=== PATIENT | female | born 1970 | race Caucasian/White ===

== ENCOUNTER 2022-05-09 12:52 | Emergency (ER) | payer SELFPAY ==
[~2022-05-09] VITALS: Ht 157.5 cm; Wt 66.6 kg
[~2022-05-09 12:52] MED LIST: EFFEXOR XR37.5 MG PO; ULTRAM50 MG PO
[2022-05-09] MEDS ORDERED: CEPHALEXIN500 M1 PO (14:51)
[2022-05-09] MEDS ORDERED: ONDANSETRON ODT8 MG PO (14:53)
== END 2022-05-09 16:18 | disposition home or self-care (01) ==
LOC: ED 12:52
DX: N12 Tubulo-interstitial nephritis, not specified as acute or chronic (principal)
CPT/HCPCS: 36415; 76770; 80053; 81001; 83690; 85025; 87088; 96365; 96375; 99284-25; J0696; J1885; J2405; J7030

== ENCOUNTER 2022-11-27 10:10 | Day surgery (SDC) | payer BC ==
[~2022-11-27] VITALS: Ht 157.5 cm; Wt 65.9 kg
--- NOTE | ~2022-11-27 | OR ---
[facility] [address], [place] [address] Draft DATE OF OPERATION: 11/27/2022 SURGEON: Elkin Cox DO PREOPERATIVE DIAGNOSIS: Incidental left ovarian mass. POSTOPERATIVE DIAGNOSES: 1. Left broad ligament fibroid. 2. Normal ovaries bilaterally. 3. Cecal serosal cyst. 4. Right labial mass consistent with lipoma. PROCEDURES PERFORMED: 1. Diagnostic laparoscopy. 2. Pelvic washings. 3. Biopsy of bowel (cecal serosa). MEDICAL CODING AUDITOR: Herlinda Lowe D.O. ANESTHESIA: General. ESTIMATED BLOOD LOSS: 5 mL. SPECIMENS: 1. Pelvic washings. 2. Cecal serosal cyst biopsy. FINDINGS: Right labial mass consistent with lipoma, otherwise normal external genitalia, vagina and cervix. On laparoscopy, normal upper abdomen. Fatty cystic lesions on the cecum that were biopsied, otherwise normal bowel and omentum and peritoneum. Pelvic washings collected. Normal ovaries bilateral and the patient is status post bilateral tubal ligation. Broad ligament fibroid on the left consistent with finding on ultrasound as well as cornual fibroid noted. COMPLICATIONS: PATIENT NAME: JOLENE SILVER OPERATIVE REPORT DATE OF : 72 REPORT #: [id number] PHYSICIAN: ELKIN COX (LAITH) PCP: Beba Abarca REPORT IS CONFIDENTIAL AND NOT TO BE RELEASED WITHOUT AUTHORIZATION [facility] [address] [facility] [place] [place] [address] Draft None. INDICATIONS: Ms. Silver is a very pleasant 52-year-old female, who was under the care of Dr. Helm for urinary issues. She underwent CAT scan that demonstrated abnormality of the left adnexum, concerning for possible hypervascular structure of the ovary. Ultrasound was performed that confirmed the finding. The patient was consented for laparoscopic left salpingo-oophorectomy with pelvic washings. Risks, benefits, and alternatives were discussed in detail with the patient. The patient understands and wished to proceed with the procedure. TECHNIQUE: The patient was taken to the operating room where time-out was performed to confirm correct patient and correct procedure. General anesthesia was adequately established. The patient was prepped and draped in dorsal lithotomy position with her feet in Yellofin stirrups. ICPs were on and running. No preoperative antibiotics or heparin were indicated. A Malik catheter was inserted. The anterior lip of the cervix was grasped with an Allis clamp and a Solvonics uterine manipulator was placed. Of note, there is a right mass of the labia majora consistent with lipoma. It is soft and isolated. No pelvic or groin lymphadenopathy. Surgeon's gloves were changed and attention was turned to the abdomen. Just inferior to the umbilicus, the skin was infiltrated with 0.25% Marcaine with epinephrine and an incision was made across prior scar using an 11 blade. The fascia was then grasped, elevated, and entered sharply using Metzenbaum scissors. Stay sutures of 0 Vicryl were placed on the inferior and superior edge of the fascia and the peritoneum was entered bluntly. Pneumoperitoneum was adequately established after insertion of a Ava operative port. A 5 mm assist port was placed in the left lower quadrant under direct visualization and another 5 mm assist port was placed in the right lower quadrant under direct visualization without complications. Survey of the abdomen and pelvis was performed demonstrating right upper quadrants, some fatty cystic lesions on the cecum with no other abnormalities noted of the omentum or peritoneum. Attention was turned to the pelvis. Fibroid uterus with fibroids of the cornu and in the left broad ligament were noted. Normal ovaries bilaterally and status post bilateral tubal ligation observed. Pelvic washings were obtained. Careful evaluation of the left broad ligament mass is most consistent with a fibroid and ultrasound images reviewed intraoperatively and compared to intraoperative findings. Again, very normal-appearing left ovary was appreciated and decision was made to not proceed with left salpingo-oophorectomy and would recommend return to the operating room for total laparoscopic hysterectomy, bilateral salpingectomy, excision of left broad ligament fibroid, and cystoscopy. Attention was turned to the fatty cystic structures of the cecum. They were grasped with [place] graspers, elevated, and serosa was excised using surgical diane with careful attention to avoid the bowel. These were sent to pathology for further evaluation, although suspicion is they are benign. PATIENT NAME: JOLENE SILVER OPERATIVE REPORT DATE OF : 72 REPORT #: [id number] PHYSICIAN: ELKIN COX) PCP: Beba Abarca REPORT IS CONFIDENTIAL AND NOT TO BE RELEASED WITHOUT AUTHORIZATION [facility] [address], [place] [address] Draft Hemostasis was appreciated and pneumoperitoneum was reduced. Trocars were removed and infraumbilical fascia was repaired using 0 Vicryl in a running nonlocked manner. Stay sutures were then plicated to reinforce this repair. Skin was reapproximated using 4-0 Monocryl in a running subcuticular stitch. Hulka and Malik were removed and the patient was taken to PACU in good and stable condition. Sponge, needle, and instrument counts were correct x2 at the end of procedure. Dr. Lowe, was present and participated in all portions of the procedure. DO HILDA Kaba/JACKELIN /[id number] Copies: ~ PATIENT NAME: JOLENE SILVER OPERATIVE REPORT DATE OF : 72 REPORT #: [id number] PHYSICIAN: ELKIN COX DO (JD) PCP: Beba Abarca REPORT IS CONFIDENTIAL AND NOT TO BE RELEASED WITHOUT AUTHORIZATION
[~2022-11-27 10:10] MED LIST changes: +CEPHALEXIN500 M1 PO; +ONDANSETRON ODT8 MG PO; +WELLBUTRIN XL300 MG PO; +ZOLOFT50 MG PO
[2022-11-27] MEDS ORDERED: CIPROFLOXACIN100 MG PO (10:24)
--- NOTE | 2022-11-27 15:16 | NUR ---
11/27/22 1516 Andreea Al 1509- PT ARRIVES TO PACU NONAROUSABLE TO NOXIOUS STIMULI WITH AN OPA IN PLACE. RESP EVEN AND UNLABORED. OXYGEN SAT HIGH 90'S TO 100% ON 6L VIA MASK.
--- NOTE | 2022-11-27 16:00 | NUR ---
JIM 5656 PATIENT BACK FROM PACU. REPORT RECIEVED FROM BRENDAN BARRAZA. PATIENT IS DROWSY BUT ORIENTED AND ALERT. BREATHING EQUAL AND UNLABORED. OXYGEN SATURATIONS ABOVE 95% ON ROOM AIR. PATIENT DENIES BEING NAUSEATED. PATIENT DENIES ANY PAIN AT THIS TIME. IVF INFUSING. SCD'S PN. SURGICAL SITES CLEAN, DRY AND INTACT. PATIENT DRINKING WATER AND TALKING TO HER TWO FAMILY MEMBERS AT THE BEDSIDE. CALL LIGHT WITHIN REACH NO FUTHER NEEDS. NO QUESTIONS AT THIS TIME.
--- NOTE | 2022-11-27 16:16 | NUR ---
JIM 1615 PATIENT IN TALKING TO FAMILY MEMBERS. PATIENT EATING CRACKERS AND DRINKING WATER. DENIES FEELING NAUSEATED OR HAVING PAIN. CALL LIGHT WITHIN REACH NO FUTHER NEEDS. NO QUESTIONS AT THIS TIME.
--- NOTE | 2022-12-02 14:03 | PATH ---
[facility] [address] [facility] [place], [place] [address] Signed SPECIMEN(S): A CECAL SEROSA BIOPSY SPECIMEN SOURCE: A. CECAL SEROSA BIOPSY CLINICAL HISTORY: Pre: Left ovarian mass. Post: Laparoscopic left salpingo-oophorectomy, pelvis washings. FINAL PATHOLOGIC DIAGNOSIS: Cecal serosa biopsy: - Fragment of benign fibroadipose tissue, negative for pathologic inflammation or malignancy. COMMENT: The concurrent pelvic washing (, negative for malignancy) is noted. JVR:donh:C2NR MICROSCOPIC EXAMINATION: Histologic sections of all submitted blocks are examined by light microscopy. These findings, together with the gross examination, support the pathologic diagnosis. GROSS DESCRIPTION: The specimen, labeled and designated "Anjali Silver A," and designated on the requisition as "pelvic washings, biopsy cecal serosa"," is received in formalin and consists of one cowart soft tissue fragment, 0.3 cm. The specimen is submitted in toto in 1 cassette (A1). Note: The formalin is retained. in (A1). AI (under the direct supervision of a pathologist) The Gross Description was prepared using a voice recognition system. The report was reviewed for accuracy; however, sound-alike word errors, addition and/or deletions may occur. If there is any question about this report, please contact Client Services. PERFORMING LABORATORY: The technical component was performed by [facility], [address] [place] [id number] (CLIA# [id number]). Professional interpretation was performed by [facility], [address] [place] [address], [place] [address] (CLIA#: [id number]). PATIENT NAME: ANJALI SILVER PATHOLOGY DATE OF : 72 REPORT #: [id number] PHYSICIAN: [facility] PCP: Beba Abarca REPORT IS CONFIDENTIAL AND NOT TO BE RELEASED WITHOUT AUTHORIZATION [address] [address] Signed Diagnostician: Jh Knight MD Pathologist Electronically Signed 12/02/2022 Copies: ~ PATIENT NAME: ANJALI SILVER PATHOLOGY DATE OF : 72 REPORT #: [id number] PHYSICIAN: [facility] PCP: Beba Abarca REPORT IS CONFIDENTIAL AND NOT TO BE RELEASED WITHOUT AUTHORIZATION
== END 2022-11-27 16:50 | disposition home or self-care (01) ==
LOC: OPS 10:10 → DS 10:10 → OPS 13:00 → DS 13:00 → OPS 16:50
PROVIDERS: ATTEND Obstetrics & Gynecology
PROC: 0DD Gastrointestinal System, Extraction (ICD-10-PCS; principal; 2022-11-27 13:00)
DX: K63.89 Other specified diseases of intestine (principal); N90.7 Vulvar cyst; D28.2 Benign neoplasm of uterine tubes and ligaments; N80.03 Adenomyosis of the uterus; D25.9 Leiomyoma of uterus, unspecified; Z98.51 Tubal ligation status
CPT/HCPCS: J0131; J1100; J1885; J2001; J2250; J2405; J2704; J3010; J3475; J7121

== ENCOUNTER 2023-11-17 04:01 | Emergency (ER) | payer OTHER ==
[~2023-11-17] VITALS: Ht 157.5 cm; Wt 69.4 kg
[~2023-11-17 04:01] MED LIST changes: +CENTRUM WOMEN1 EACH PO; +CIPROFLOXACIN100 MG PO; +VITAMIN C500 M4 PO
[2023-11-17 04:30] VITALS: BP 149/89
== END 2023-11-17 04:31 | disposition home or self-care (01) ==
LOC: ED 04:01
DX: H92.02 Otalgia, left ear (principal); M54.2 Cervicalgia; G89.29 Other chronic pain
CPT/HCPCS: 99282